=== PATIENT | male | born 1960 ===

== ENCOUNTER 2023-09-10 09:17 | Day surgery (SDC) | payer OTHER ==
[2023-09-05 11:31] LABS: HEMATOCRIT 44.6 % (39.0-48.0); HEMOGLOBIN 15.1 g/dL (13-16.00); MEAN CELL VOLUME 91.8 fL (80.0-100.00); MEAN CORPUSCULAR HEMOGLOBIN 31.1 pg (27.00-32.0); MEAN CORPUSCULAR HGB CONC 33.9 g/dl (32.0-36.0); PLATELET COUNT 261 K/uL (150-450); RED BLOOD COUNT 4.86 M/uL (4.00-6.00)
[2023-09-05 11:32] LABS: URINE APPEARANCE Clear; URINE BILIRRUBIN Negative (NEGATIVE); URINE BLOOD Negative; URINE COLOR Yellow; URINE GLUCOSE Negative (NEGATIVE); URINE LEUKOCYTE Negative; URINE NITRATE Negative; URINE PROTEIN Trace (NEGATIVE)
[2023-09-05 11:33] LABS: URINE EPITHELIAL CELLS 3.3 uL (0.0-38.8); URINE RBC 19.8 uL (0.0-20.8); URINE WBC 2.3 uL (0.0-23.2)
[2023-09-05 12:20] LABS: INR 1.04; PARTIAL THROMBOPLASTIN TIME 29.7 SECONDS (22.0-34.0); PROTHROMBIN TIME 10.9 SECONDS (9.0-11.5)
[2023-09-05 12:22] LABS: ALBUMIN 3.9 gm/dL (3.4-5.0); BILIRUBIN TOTAL 0.84 mg/dL (0.3-1.2); CALCIUM 9.1 mg/dL (8.5-10.1); CREATININE SERUM 0.86 mg/dL (0.70-1.30); GFR 90.11; GLOBULINA 4.5 G/DL (2.4-3.5); POTASSIUM 3.96 mEq/L (3.5-5.1); TOTAL PROTEIN 8.4 gm/dL (6.4-8.2)
[~2023-09-10 09:17] MED LIST: ATACAND HCT 321 EACH PO; DOXAZOSIN MESYLA2 MG PO; FLEXGEN TABLET1 EACH PO; HYDRALAZINE HC100 MG PO; ROSUVASTATIN CA20 MG PO; TOPROL XL100 M1 PO; WIXELA 100-501 EACH IH
== END 2023-09-10 19:20 | disposition home or self-care (01) ==
LOC: CIR.AMB 09:17
PROVIDERS: ATTEND Surgery
DX: K43.6 Other and unspecified ventral hernia with obstruction, without gangrene (principal); Z20.822 Contact with and (suspected) exposure to COVID-19